=== PATIENT | female | born 1965 | race Caucasian/White ===

== ENCOUNTER 2017-06-27 20:48 | Emergency (ER) | payer OTHER ==
[2017-06-27] MEDS ORDERED: HYDROmorphone 0.5 MG/0.5 ML SYRINGE IVP STA (21:22)
[2017-06-27] MEDS ORDERED: SODIUM CHLORIDE 0.9% 1,000 ML IV STA (21:22)
--- NOTE | 2017-06-27 21:41 | ED ---
Abdominal Pain HPI - General Chief Complaint: Abdominal Pain Stated Complaint: abd pain Time Seen by Provider: 06/27/17 21:04 Source: patient, RN notes reviewed Mode of arrival: ambulatory Limitations: no limitations - History of Present Illness Initial Comments: This is a 52-year-old female who presents to the emergency department with chief complaint of abdominal pain. Patient states that on Wednesday she began to experience midline lower abdominal pain but that it was not bad. She states that she was able to go to work. She reports that yesterday the pain began to worsen in intensity. She took ibuprofen 800 mg last night in order to sleep as it took the edge off. She states that she was going to wait until tomorrow to follow-up with her primary care provider, but the pain became too intense this evening. She took an 800 mg ibuprofen 8 PM this evening. Patient admits to a decrease in appetite but denies nausea, vomiting, diarrhea or constipation. She states that the pain is made worse after eating. Her last bowel movement was yesterday, patient states that it was runny. She denies any urinary symptoms such as dysuria, increasing frequency or hematuria. Denies fevers or chills. No shortness of breath or chest pain. Patient states she has had an appendectomy and 3 sections in the past. - Related Data Home Medications Medication Instructions Recorded Confirmed Lisinopril [Zestril] 20 mg PO DAILY 06/19/15 06/27/17 Ibuprofen [Motrin] 800 mg PO Q6HR PRN 06/27/17 06/27/17 Montelukast [Singulair] 10 mg PO DAILY 06/27/17 06/27/17 metFORMIN HCL [Glucophage] 500 mg PO DAILY 06/27/17 06/27/17 Previous Rx's Medication Instructions Recorded Ciprofloxacin HCl [Cipro] 500 mg PO Q12HR #14 tablet 06/28/17 metroNIDAZOLE [Flagyl] 500 mg PO Q8HR #28 tab 06/28/17 Allergies Allergy/AdvReac Type Severity Reaction Status Date / Time Penicillins AdvReac Rash/Hives Verified 06/27/17 21:12 Review of Systems ROS Statement: Those systems with pertinent positive or pertinent negative responses have been documented in the HPI. ROS Other: All systems not noted in ROS Statement are negative. Past Medical History Past Medical History: Diabetes Mellitus, Hypertension History of Any Multi-Drug Resistant Organisms: None Reported Past Surgical History: Appendectomy, Section, Hysterectomy Past Psychological History: No Psychological Hx Reported Smoking Status: Never smoker Past Alcohol Use History: Rare Past Drug Use History: None Reported General Exam - General Exam Comments Initial Comments: General: Awake and alert, well-developed; in no apparent distress. Does not appear to be acutely ill. HEENT: Head atraumatic, normocephalic. Pupils are equal, round and reactive to light. Extraocular movements intact. Oropharynx moist without erythema or exudate. Neck: Supple. Normal ROM. Cardiovascular: Regular rate and rhythm. No murmurs, rubs or gallops. Chest symmetrical. Respiratory: Lungs clear to auscultation bilaterally. No wheezes, rales or rhonchi. Normal respiratory effort with no use of accessory muscles. Abdomen: Soft, non-distended. Generalized tenderness on palpation, especially at midline abdomen. No rigidity, rebound or guarding. Normal bowel sounds in all 4 quadrants. Musculoskeletal: Normal ROM, no tenderness bilateral upper and lower extremities. Skin: [place], warm and dry without rashes or lesions. Neurological: Alert and oriented x3. CN II-XII grossly intact. Speech is fluent and answers are appropriate. No focal neuro deficits. Psychiatric: Normal mood and affect. No overt signs of depression or anxiety noted. Limitations: no limitations Course Vital Signs 06/27/17 20:49 Temperature 98.8 F Pulse Rate 116 H Respiratory 18 Rate Blood Pressure 127/63 O2 Sat by Pulse 99 Oximetry Medical Decision Making - Medical Decision Making This is a 52-year-old female who presents to the emergency department for evaluation of abdominal pain. X-ray KUB revealed a overall nonobstructive bowel pattern. CBC revealed a white count of 17.6 with left shift at 14.1. During and 1+ ketones, trace blood and small leukocyte esterase. Computed tomography scan revealed acute diverticulitis. Patient given by mouth Cipro and Flagyl in the emergency department. Vitals are stable and she is in no acute distress. Patient will be discharged home with prescription for Cipro and Flagyl. She is in agreement with plan and voices understanding. All questions were answered. Return parameters were discussed. Patient is to follow-up with her primary care provider within 1-2 days. This case was discussed with attending physician, Dr. Nye. - Lab Data Result diagrams: 06/27/17 21:27 Lab Results 06/27/17 06/27/17 Range/Units 21:27 21:27 WBC 17.6 H (3.8-10.6) k/uL RBC 5.41 H (3.80-5.40) m/uL Hgb 14.1 (11.4-16.0) gm/dL Hct 46.9 H (34.0-46.0) % MCV 86.7 (80.0-100.0) fL MCH 26.1 (25.0-35.0) pg MCHC 30.1 L (31.0-37.0) g/dL RDW 15.1 (11.5-15.5) % Plt Count 302 (150-450) k/uL Neutrophils % 80 % Lymphocytes % 13 % Monocytes % 4 % Eosinophils % 2 % Basophils % 0 % Neutrophils # 14.1 H (1.3-7.7) k/uL Lymphocytes # 2.2 (1.0-4.8) k/uL Monocytes # 0.7 (0-1.0) k/uL Eosinophils # 0.3 (0-0.7) k/uL Basophils # 0.1 (0-0.2) k/uL Hypochromasia Slight Urine Color Yellow Urine Appearance Cloudy H (Clear) Urine pH 5.5 (5.0-8.0) Ur Specific [place] 1.024 (1.001-1.035) Urine Protein 1+ H (Negative) Urine Glucose (UA) Negative (Negative) Urine Ketones 1+ H (Negative) Urine Blood Trace H (Negative) Urine Nitrite Negative (Negative) Urine Bilirubin Negative (Negative) Urine Urobilinogen 2.0 (<2.0) mg/dL Ur Leukocyte Esterase Small H (Negative) Urine RBC 4 (0-5) /hpf Urine WBC 6 H (0-5) /hpf Ur Squamous Epith Cells 4 (0-4) /hpf Urine Bacteria Occasional H (None) /hpf Urine Mucus Few H (None) /hpf - Radiology Data Radiology results: report reviewed X-ray KUB findings: Scattered gas is seen in nondistended small bowel loops. Gas and fecal material is seen in nondistended colon. There is no visceromegaly , pneumoperitoneum or abnormal calcification appreciated. Bases are clear in the osseous structures are intact. Mild degenerative changes of the femoral acetabular joint noted bilaterally as well as degenerative changes of the thoracolumbar and lumbosacral spine. Impression: Nonobstructive bowel gas pattern. CT abdomen and pelvis impression: There is a 7 x 4 cm area of mid sigmoid colon wall thickening and surrounding inflammatory changes consistent with acute diverticulitis. Numerous sigmoid diverticula. No drainable fluid collection. Fatty infiltration of the liver. There is some facet arthropathy at L4-L5 and mild lateral recess stenosis. Disposition Clinical Impression: Diverticulitis Disposition: HOME SELF-CARE Condition: Good Instructions: Diverticulitis (ED) Additional Instructions: Please take medications as prescribed. Please follow up with primary care provider within 1-2 days. Return to emergency department if symptoms should worsen or any concerns arise. Prescriptions: Ciprofloxacin HCl [Cipro] 500 mg PO Q12HR #14 tablet metroNIDAZOLE [Flagyl] 500 mg PO Q8HR #28 tab Referrals: Radha Sanderson MD [Primary Care Provider] - 1-2 days Time of Disposition: 01:21
[2017-06-27 21:57] LABS: Basophils # (A) 0.1 k/uL (0-0.2); Basophils % (A) 0 %; Eosinophils # (A) 0.3 k/uL (0-0.7); Eosinophils % (A) 2 %; HCT 46.9 % (34.0-46.0); HGB 14.1 gm/dL (11.4-16.0); Hypochromasia Slight; Lymphocytes # (A) 2.2 k/uL (1.0-4.8); Lymphocytes % (A) 13 %; MCH 26.1 pg (25.0-35.0); MCHC 30.1 g/dL (31.0-37.0); MCV 86.7 fL (80.0-100.0); Mean Platelet Volume 7.6; Monocytes # (A) 0.7 k/uL (0-1.0); Monocytes % (A) 4 %; Neutrophils # (A) 14.1 k/uL (1.3-7.7); Neutrophils % (A) 80 %; Platelet Count 302 k/uL (150-450); RBC 5.41 m/uL (3.80-5.40); RDW 15.1 % (11.5-15.5); WBC 17.6 k/uL (3.8-10.6)
--- NOTE | 2017-06-27 21:59 | XR ---
EXAMINATION TYPE: XR KUB DATE OF EXAM: 06/27/2017 9:53 PM CLINICAL HISTORY: Worsening abdominal pain with history of diverticulitis. TECHNIQUE: Single upright image of the abdomen is obtained. COMPARISON: 08/25/2009. FINDINGS: Scattered gas is seen in non-distended small bowel loops. Gas and fecal material is seen in non-distended colon. There is no visceromegaly, pneumoperitoneum, or abnormal calcification apprecia ashley. The lung bases are clear and the osseous structures are intact. Mild degenerative changes of the femoral acetabular joints are noted bilaterally as well as degenerative changes of the thoracolumbar and lumbosacral spine. IMPRESSION: Nonobstructive bowel gas pattern.
[2017-06-27 22:02] LABS: Appearance,Urine Cloudy (Clear); Bacteria,Urine Occasional /hpf; Bilirubin,Urine Negative (Negative); Blood,Urine Trace (Negative); Color,Urine Yellow; Glucose,Urine (UA) Negative (Negative); Ketones,Urine 1+ (Negative); Leukocyte Esterase,Urine Small (Negative); Mucus,Urine Few /hpf; Nitrite,Urine Negative (Negative); PH, Urine 5.5 (5.0-8.0); Protein,Urine 1+ (Negative); RBC,Urine 4 /hpf (0-5); Specific Gravity,Urine 1.024 (1.001-1.035); Squamous Epithelial Cell,Urine 4 /hpf (0-4); WBC,Urine 6 /hpf (0-5)
[2017-06-27] MEDS ORDERED: RX INFO: IV CONTRAST WAS GIVEN 1 EACH MISC MISCELLANE PRN (22:26)
[2017-06-27 23:23] LABS: ALT 36 U/L (9-52); AST 27 U/L (14-36); Albumin 3.4 g/dL (3.5-5.0); Alkaline Phosphatase 66 U/L (38-126); Amylase 32 U/L (30-110); Anion Gap 8 mmol/L; Blood Urea Nitrogen 11 mg/dL (7-17); Calcium 8.8 mg/dL (8.4-10.2); Carbon Dioxide 23 mmol/L (22-30); Chloride 109 mmol/L (98-107); Glucose 125 mg/dL (74-99); Lipase 62 U/L (23-300); Potassium 4.1 mmol/L (3.5-5.1); Sodium 140 mmol/L (137-145); Total Bilirubin 1.1 mg/dL (0.2-1.3); Total Protein 6.5 g/dL (6.3-8.2)
[2017-06-27] MEDS ORDERED: LORazepam 2 MG/ML INJ IV STA (23:57)
[2017-06-28 00:38] VITALS: RESP 17
--- NOTE | 2017-06-28 00:39 | CT ---
EXAMINATION TYPE: CT abdomen pelvis w con DATE OF EXAM: 06/28/2017 COMPARISON: NONE HISTORY: Abd pain all over, hx: hysterectomy, appendectomy CT DLP: 3048.80 mGycm Automated exposure control for dose reduction was used. TECHNIQUE: Helical acquisition of images was performed from the lung bases through the pelvis. CONTRAST: Performed without Oral Contrast and with IV Contrast, patient injected with 100 mL of Omnipaque 300. FINDINGS: There is mild subsegmental atelectasis at the lung bases. There is no pleural effusion. There is prob ably some fatty infiltration of the liver. Gallbladder appears normal. Spleen appears normal. Bile du cts are not dilated. There is no pancreatic mass. There is no adrenal mass. Kidneys show satisfactory contrast opacification. There is no hydronephrosis. There is no ascites. There is fat stranding around the mid sigmoid colon with numerous diverticula. There is mild wall thi ckening. Bladder distends smoothly. There is no free fluid in the pelvis. IMPRESSION: THERE IS A 7 X 4 CM AREA OF MID SIGMOID COLON WALL THICKENING AND SURROUNDING INFLAMMATORY CHANGES CO NSISTENT WITH ACUTE DIVERTICULITIS. NUMEROUS SIGMOID DIVERTICULA. NO DRAINABLE FLUID COLLECTION. FATTY INFILTRATION OF THE LIVER. THERE IS SOME FACET ARTHROPATHY AT L4-5 AND MILD LATERAL RECESS STENOSIS.
[2017-06-28] MEDS ORDERED: CIPROFLOXACIN HCL 500 MG TAB PO STA (00:48)
[2017-06-28] MEDS ORDERED: metroNIDAZOLE 500 MG TAB PO STA (00:48)
[2017-06-28 01:37] VITALS: BP 120/69; PULSE 96; TEMP 98.6
== END 2017-06-28 01:37 | disposition home or self-care (01) ==
LOC: EC 20:48
DX: K57.92 Diverticulitis of intestine, part unspecified, without perforation or abscess without bleeding (principal); E11.9 Type 2 diabetes mellitus without complications; I10 Essential (primary) hypertension; Z90.49 Acquired absence of other specified parts of digestive tract; Z79.84 Long term (current) use of oral hypoglycemic drugs; Z79.899 Other long term (current) drug therapy; Z88.0 Allergy status to penicillin
CPT/HCPCS: 36415; 80053; 82150; 83690; 85025; 81001; 74018; 74177; 99284; 96374; 96361; 96375; Q9967; J2060; J1170

== ENCOUNTER 2017-09-28 17:57 | Emergency (ER) | payer OTHER ==
[2017-09-28] MEDS ORDERED: BUTORPHANOL 1 MG/ML 1 ML VIAL IM PRN (18:39)
[2017-09-28] MEDS ORDERED: RX INFO: IV CONTRAST WAS GIVEN 1 EACH MISC MISCELLANE PRN (18:41)
[2017-09-28] MEDS ORDERED: MORPHINE SULFATE 4MG/4ML SYRG IVP STA (18:42)
[2017-09-28] MEDS ORDERED: SODIUM CHLORIDE 0.9% 1,000 ML IV ONE (18:42)
[2017-09-28] MEDS ORDERED: ONDANSETRON 4 MG/2 ML VIAL IVP STA (18:42)
[2017-09-28] MEDS ORDERED: KETOROLAC 30 MG/ML 1 ML VIAL IVP STA (18:42)
[2017-09-28 19:13] LABS: Basophils % (A) 0 %; Eosinophils # (A) 0.1 k/uL (0-0.7); Eosinophils % (A) 1 %; HCT 40.8 % (34.0-46.0); HGB 13.3 gm/dL (11.4-16.0); Lymphocytes # (A) 2.4 k/uL (1.0-4.8); Lymphocytes % (A) 20 %; MCH 27.3 pg (25.0-35.0); MCHC 32.7 g/dL (31.0-37.0); MCV 83.6 fL (80.0-100.0); Mean Platelet Volume 6.8; Monocytes # (A) 0.6 k/uL (0-1.0); Monocytes % (A) 5 %; Neutrophils # (A) 8.4 k/uL (1.3-7.7); Neutrophils % (A) 72 %; Platelet Count 306 k/uL (150-450); RBC 4.88 m/uL (3.80-5.40); RDW 14.5 % (11.5-15.5); WBC 11.8 k/uL (3.8-10.6)
[2017-09-28 19:21] LABS: ALT 25 U/L (9-52); AST 16 U/L (14-36); Albumin 3.8 g/dL (3.5-5.0); Alkaline Phosphatase 61 U/L (38-126); Anion Gap 15 mmol/L; Blood Urea Nitrogen 12 mg/dL (7-17); Calcium 9.5 mg/dL (8.4-10.2); Carbon Dioxide 23 mmol/L (22-30); Chloride 104 mmol/L (98-107); Glucose 105 mg/dL (74-99); Lipase 64 U/L (23-300); Potassium 3.9 mmol/L (3.5-5.1); Sodium 142 mmol/L (137-145); Total Bilirubin 0.5 mg/dL (0.2-1.3); Total Protein 7.8 g/dL (6.3-8.2)
--- NOTE | 2017-09-28 20:17 | CT ---
EXAMINATION TYPE: CT abdomen pelvis w con DATE OF EXAM: 09/28/2017 COMPARISON: NONE HISTORY: Left lower quadrant pain x [address] DLP: 1786 mGycm CONTRAST: CT scan of the abdomen and pelvis is performed without Oral Contrast and with IV Contrast, patient in jected with 100 mL of Isovue 300. FINDINGS: LUNG BASES-: No visible nodule. No infiltrate. LIVER/GB: No calcified gallstones. No space occupying hepatic lesion. Biliary tree is of normal ca liber. Mild hepatic steatosis. PANCREAS: No inflammation. No distinct mass. SPLEEN: No splenic enlargement. No lesion seen. ADRENALS: No nodule. No thickening. KIDNEYS/BLADDER: No hydronephrosis. No nephrolithiasis. Simple cyst left kidney. Urinary bladder gr ossly unremarkable. BOWEL: Normal appendix. Wall thickening with surrounding inflammatory change involving the sigmoid co belia compatible with acute diverticulitis without abscess at this time. Small amount of adjacent fluid . The remainder of the colon and small bowel appear to be of normal caliber.. GENITAL ORGANS: No gross abnormality. LYMPH NODES: No greater than 1cm abdominal or pelvic lymph nodes are appreciated. AORTA: No significant abnormality. OSSEOUS STRUCTURES: No significant abnormality is seen. OTHER: No significant additional abnormality is seen. IMPRESSION: 1. Acute sigmoid diverticulitis with surrounding phlegmon. No evidence for abscess at this time.
[2017-09-28 20:19] LABS: Appearance,Urine Clear (Clear); Bilirubin,Urine Negative (Negative); Blood,Urine Negative (Negative); Color,Urine Light Yellow; Glucose,Urine (UA) Negative (Negative); Ketones,Urine Trace (Negative); Leukocyte Esterase,Urine Moderate (Negative); Mucus,Urine Rare /hpf; Nitrite,Urine Negative (Negative); Protein,Urine Negative (Negative); RBC,Urine 1 /hpf (0-5); Squamous Epithelial Cell,Urine 3 /hpf (0-4); Urobilinogen,Urine <2.0 mg/dL (<2.0); WBC,Urine 1 /hpf (0-5)
--- NOTE | 2017-09-28 21:34 | ED ---
Abdominal Pain HPI - General Chief Complaint: Abdominal Pain Stated Complaint: diverticulitis pain Time Seen by Provider: 09/28/17 18:20 Source: patient Mode of arrival: ambulatory Limitations: no limitations - History of Present Illness Initial Comments: Patient is a 52-year-old female with a history of diverticulitis who presents with a chief complaint of left lower quadrant abdominal pain. Patient states that she was just discharged from [facility] where she was treated for diverticulitis. The patient states that her surgeon is Dr. nelson and that he plans to do a colonoscopy after her diverticulitis has resolved. The patient states that after being discharged she initially felt better however she is now having pain in the left lower quadrant. She is currently taking Flagyl and Levaquin. Patient states that she is having increased pain and is now in the left lower quadrant as opposed to the left upper. Patient states that she is able to tolerate by mouth intake however she does not have much of an appetite. She denies any fever or diarrhea. - Related Data Home Medications Medication Instructions Recorded Confirmed RX: Montelukast [Singulair] 10 mg PO HS 06/27/17 09/28/17 Levofloxacin [Levaquin] 500 mg PO HS 09/28/17 09/28/17 RX: traMADol HCL [Ultram] 50 mg PO BID PRN 09/28/17 09/28/17 Previous Rx's Medication Instructions Recorded metroNIDAZOLE [Flagyl] 500 mg PO TID #42 tab 07/09/17 Acetaminophen with Codeine 1 tab PO Q4H #12 tab 09/28/17 [Tylenol w/codeine #3] Docusate [Colace] 100 mg PO DAILY #30 capsule 09/28/17 Ondansetron HCl [Zofran] 4 mg PO Q8HR #20 tablet 09/28/17 Allergies Allergy/AdvReac Type Severity Reaction Status Date / Time Penicillins Allergy Rash/Hives Verified 09/28/17 19:06 Sulfa (Sulfonamide Allergy Unknown Verified 09/28/17 19:06 Antibiotics) erythromycin base AdvReac COLD SORES Verified 09/28/17 19:06 tramadol AdvReac Nausea & Verified 09/28/17 19:06 Vomiting Review of Systems ROS Statement: Those systems with pertinent positive or pertinent negative responses have been documented in the HPI. ROS Other: All systems not noted in ROS Statement are negative. Gastrointestinal: Reports: nausea. Denies: vomiting Past Medical History Past Medical History: Diabetes Mellitus, Hypertension, Skin Disorder Additional Past Medical History / Comment(s): Diverticulitis years ago, NIDDM type II diagnosed a few months ago, arthritis arms/knees bilaterally, recently had fluid removed from R knee, bronchitis's, migraines, eczema. History of Any Multi-Drug Resistant Organisms: None Reported Past Surgical History: Appendectomy, Breast Surgery, Section, Hysterectomy Additional Past Surgical History / Comment(s): C-sections x 3, D&C, L breast benign bx. Past Anesthesia/Blood Transfusion Reactions: No Reported Reaction Past Psychological History: No Psychological Hx Reported Smoking Status: Never smoker Past Alcohol Use History: None Reported Past Drug Use History: None Reported - Past Family History Mother Family Medical History: COPD, Dementia Additional Family Medical History / Comment(s): Mother at age 82yrs. Father Family Medical History: No Reported History Additional Family Medical History / Comment(s): Father is healthy and 84 yrs old. General Exam Limitations: no limitations General appearance: alert, in no apparent distress Head exam: Present: atraumatic, normocephalic Eye exam: Present: normal appearance ENT exam: Present: mucous membranes moist Respiratory exam: Present: normal lung sounds bilaterally. Absent: respiratory distress Cardiovascular Exam: Present: regular rate, normal rhythm GI/Abdominal exam: Present: soft, tenderness (Patient is tenderness in the left upper and lower quadrants.) Rectal exam: Present: deferred Neurological exam: Present: alert, oriented X3 Psychiatric exam: Present: normal affect, normal mood Skin exam: Present: warm, dry, intact Course Vital Signs 09/28/17 18:08 Temperature 98.4 F Pulse Rate 101 H Respiratory 20 Rate Blood Pressure 171/98 O2 Sat by Pulse 98 Oximetry Medical Decision Making - Medical Decision Making Patient presents with a chief complaint of left lower quadrant pain after recent discharge from the hospital for diverticulitis. On initial evaluation, vital signs are stable, patient is in no acute distress. Patient states that she was discharged on Levaquin and Flagyl, she is currently still taking antibiotics. Patient will be evaluated with basic abdominal labs, we will repeat a CAT scan of the abdomen and pelvis with contrast. 9:31 PM E evaluation of this patient shows a mildly elevated white count of 11,000, labs are otherwise unremarkable. Computed tomography scan of the abdomen and pelvis shows evidence of diverticulitis of the sigmoid colon which is consistent with patient's previous CAT scan. I discussed this case with Dr. Lang who is covering for Dr. nelson. Dr. Lang is recommending continuation of current antibiotics, the addition of a stool softener, and close follow-up this week in the office. I discussed the results and advice of Dr. Lang with the patient and her . At this time, they are agreeable with the current care plan. The patient states that the [place] is not controlling her pain well. I will write prescriptions for Zofran, T3, and a stool softener. The patient is agreeable with this care plan. The patient was instructed to return to the emergency department if she develops any new or concerning symptoms. Patient was further instructed to call her surgeon's office tomorrow for an appointment as soon as possible. - Lab Data Result diagrams: 09/28/17 18:56 09/28/17 18:56 Lab Results 09/28/17 09/28/17 09/28/17 Range/Units 18:56 18:56 20:05 WBC 11.8 H (3.8-10.6) k/uL RBC 4.88 (3.80-5.40) m/uL Hgb 13.3 (11.4-16.0) gm/dL Hct 40.8 (34.0-46.0) % MCV 83.6 (80.0-100.0) fL MCH 27.3 (25.0-35.0) pg MCHC 32.7 (31.0-37.0) g/dL RDW 14.5 (11.5-15.5) % Plt Count 306 (150-450) k/uL Neutrophils % 72 % Lymphocytes % 20 % Monocytes % 5 % Eosinophils % 1 % Basophils % 0 % Neutrophils # 8.4 H (1.3-7.7) k/uL Lymphocytes # 2.4 (1.0-4.8) k/uL Monocytes # 0.6 (0-1.0) k/uL Eosinophils # 0.1 (0-0.7) k/uL Basophils # 0.0 (0-0.2) k/uL Sodium 142 (137-145) mmol/L Potassium 3.9 (3.5-5.1) mmol/L Chloride 104 (98-107) mmol/L Carbon Dioxide 23 (22-30) mmol/L Anion Gap 15 mmol/L BUN 12 (7-17) mg/dL Creatinine 0.48 L (0.52-1.04) mg/dL Est GFR (CKD-EPI)AfAm >90 (>60 ml/min/1.73 sqM) Est GFR (CKD-EPI)NonAf >90 (>60 ml/min/1.73 sqM) Glucose 105 H (74-99) mg/dL Calcium 9.5 (8.4-10.2) mg/dL Total Bilirubin 0.5 (0.2-1.3) mg/dL AST 16 (14-36) U/L ALT 25 (9-52) U/L Alkaline Phosphatase 61 (38-126) U/L Total Protein 7.8 (6.3-8.2) g/dL Albumin 3.8 (3.5-5.0) g/dL Lipase 64 (23-300) U/L Urine Color Light Yellow Urine Appearance Clear (Clear) Urine pH 6.0 (5.0-8.0) Ur Specific [place] 1.030 (1.001-1.035) Urine Protein Negative (Negative) Urine Glucose (UA) Negative (Negative) Urine Ketones Trace H (Negative) Urine Blood Negative (Negative) Urine Nitrite Negative (Negative) Urine Bilirubin Negative (Negative) Urine Urobilinogen <2.0 (<2.0) mg/dL Ur Leukocyte Esterase Moderate H (Negative) Urine RBC 1 (0-5) /hpf Urine WBC 1 (0-5) /hpf Ur Squamous Epith Cells 3 (0-4) /hpf Urine Mucus Rare H (None) /hpf Disposition Clinical Impression: Diverticulitis, Abdominal pain Disposition: HOME SELF-CARE Condition: Good Instructions: Diverticulitis (ED), Diverticulitis Diet (ED) Prescriptions: Acetaminophen with Codeine [Tylenol w/codeine #3] 1 tab PO Q4H #12 tab Docusate [Colace] 100 mg PO DAILY #30 capsule Ondansetron HCl [Zofran] 4 mg PO Q8HR #20 tablet Is patient prescribed a controlled substance at discharge?: Yes If prescribed controlled substance>3 days was MAPS reviewed?: Yes When asked, does pt state using other controlled substances?: Yes Referrals: Radha Sanderson MD [Primary Care Provider] - 1-2 days
[2017-09-28 22:31] VITALS: BP 145/78; PULSE 78; RESP 16; TEMP 98.8
== END 2017-09-28 22:31 | disposition home or self-care (01) ==
LOC: EC 17:57
DX: K57.32 Diverticulitis of large intestine without perforation or abscess without bleeding (principal); D72.829 Elevated white blood cell count, unspecified; Z79.899 Other long term (current) drug therapy; Z88.0 Allergy status to penicillin; Z88.1 Allergy status to other antibiotic agents; Z88.2 Allergy status to sulfonamides; Z88.5 Allergy status to narcotic agent; Z90.49 Acquired absence of other specified parts of digestive tract
CPT/HCPCS: 36415; 80053; 83690; 85025; 81001; 74177; 99284; 96374; 96375 ×2; 96361; J2405; J1885; Q9967; J2270

== ENCOUNTER → 2022-04-15 | Outpatient (CLI) | payer OTHER ==
--- NOTE | 2022-04-15 12:01 | US ---
EXAMINATION TYPE: US abdomen complete DATE OF EXAM: 04/15/2022 COMPARISON: NONE CLINICAL HISTORY: Abd pain. pain after eating TECHNIQUE: Multiple sonographic images of the abdomen are obtained. 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 The intrahepatic portion of the IVC and proximal abdominal aorta are within normal limits. Common bile duct is unremarkable. The visualized portions of the pancreas are homo genous. The spleen is unremarkable. Kidneys are symmetric and free of hydronephrosis. No renal les ions are seen. IMPRESSION: Uncomplicated cholelithiasis.
== END | disposition home or self-care (01) ==
LOC: RADUSWWP 09:32
PROVIDERS: ATTEND Family Medicine
DX: K80.20 Calculus of gallbladder without cholecystitis without obstruction (principal)
CPT/HCPCS: 76700

== ENCOUNTER → 2022-06-23 | Outpatient (CLI) | payer OTHER ==
[2022-06-23 11:45] LABS: African American GFR (CKD) >90 (>60 ml/min/1.73 sqM); Blood Urea Nitrogen 14 mg/dL (7-17); Non-African American GFR(CKD) >90 (>60 ml/min/1.73 sqM)
--- NOTE | 2022-06-23 13:08 | CT ---
EXAMINATION TYPE: CT abdomen pelvis w con CT DLP: 2009.1 mGycm, Automated exposure control for dose reduction was used. DATE OF EXAM: 06/23/2022 12:57 PM COMPARISON: CT abdomen pelvis 09/28/2017. CLINICAL INDICATION:Female, 57 years old with history of R10.30 LOWER ABDOMINAL PAIN, UNSPECIFIED; ri ght sided abdominal pain TECHNIQUE: Standard CT of the abdomen and pelvis following the administration of 70 cc of Isovue 30 0 IV contrast material and oral contrast. Coronal and sagittal reformats were performed. FINDINGS: LOWER CHEST: Unremarkable ABDOMEN LIVER: Diffusely hypoattenuating parenchyma. GALLBLADDER AND BILE DUCTS: Layering increased densities within the lumen consistent with gallstones are present. No biliary ductal dilatation. PANCREAS: Unremarkable. SPLEEN: Unremarkable. ADRENAL GLANDS: Unremarkable. KIDNEYS AND URETERS: No evidence of hydronephrosis or renal calculus. Left renal cyst measuring up to 1.6 cm. PELVIS BLADDER: Unremarkable REPRODUCTIVE: The uterus is surgically absent. ABDOMEN & PELVIS STOMACH AND BOWEL: Stomach and duodenum are unremarkable. Few scattered colonic diverticula without e vidence for acute diverticulitis. The appendix is not visualized however there is no significant infl ammatory changes within the right lower quadrant. No evidence of bowel obstruction. Enteric contrast reaches the rectum. PERITONEUM: No evidence of pneumoperitoneum or free fluid. VASCULATURE: No evidence of aortic aneurysm. MUSCULOSKELETAL: No acute osseous abnormalities LYMPH NODES: No gross evidence for lymphadenopathy. SOFT TISSUE/ABDOMINAL WALL: Postsurgical changes anterior abdominal wall. IMPRESSION: 1. No acute abdominal/pelvic process. 2. Cholelithiasis 3. Colonic diverticulosis without evidence for acute diverticulitis. 4. Hepatic steatosis.
== END | disposition home or self-care (01) ==
LOC: RADCTMAIN 10:59
PROVIDERS: ATTEND Surgery
DX: K80.20 Calculus of gallbladder without cholecystitis without obstruction (principal); K57.30 Diverticulosis of large intestine without perforation or abscess without bleeding; K76.0 Fatty (change of) liver, not elsewhere classified
CPT/HCPCS: 82565; 84520; 74177; 36415; Q9967 ×2